=== PATIENT | male | born 1970 | race Hispanic/Latino ===

== ENCOUNTER 2023-04-19 21:50 | Emergency (ER) | payer BC, OTHER ==
[2023-04-19] MEDS ORDERED: Acetaminophen 325 MG TAB ONE (22:41)
[2023-04-20] MEDS ORDERED: Bacitracin 1 PK ONE (00:05)
== END 2023-04-20 00:15 | disposition home or self-care (01) ==
LOC: NAV ERS 21:50
DX: S80.12XA Contusion of left lower leg, initial encounter (principal); S80.11XA Contusion of right lower leg, initial encounter; S01.81XA Laceration without foreign body of other part of head, initial encounter; S63.502A Unspecified sprain of left wrist, initial encounter; I10 Essential (primary) hypertension; W22.8XXA Striking against or struck by other objects, initial encounter
CPT/HCPCS: 70460; 70486; 72125